=== PATIENT | male | born 1985 | race Caucasian/White ===

== ENCOUNTER 2019-03-11 09:10 | Emergency (ER) | payer OTHER ==
[~2019-03-11] VITALS: Ht 182.9 cm; Wt 99.8 kg
--- NOTE | 2019-03-11 09:30 | NUR ---
ANXIETY X 2 DAYS, CHEST PAIN AND FEELING DEPRESSED, GOING THROUGH DIVORCE PER PATIENT. PATIENT A/OX4, BREATHING EVEN AND UNLABORED, NO DISTRESS NOTED. KEPT COMFORTABLE, PLACED ON THE MONITOR. VSS. WILL MONITOR
[2019-03-11] MEDS ORDERED: LORAZEPAM 0.5 MG TABLET ONE (09:50)
[2019-03-11 09:54] LABS: BASOPHILS % (AUTO) 0.6 % (0.0-2.0); HEMATOCRIT 49 % (39-51); HEMOGLOBIN 16.9 g/dL (13.5-17.5); LYMPHOCYTES # (AUTO) 1.9 /CMM (0.8-4.8); LYMPHOCYTES % (AUTO) 25.2 % (20.0-44.0); MEAN CORPUSCULAR HGB CONC 34 g/dl (31.0-36.0); MEAN CORPUSCULAR VOLUME 91 fL (80-96); MONOCYTES # (AUTO) 0.8 /CMM (0.1-1.30); MONOCYTES % (AUTO) 10.6 % (2.0-12.0); NEUTROPHILS # (AUTO) 4.8 /CMM (1.8-8.9); NEUTROPHILS % (AUTO) 62.6 % (43.0-81.0); PLATELET COUNT (AUTO) 295 /CMM (150-450); RED BLOOD CELL COUNT(AUTO) 5.45 MIL/uL (4.5-6.0); WHITE BLOOD COUNT (AUTO) 7.7 K/uL (4.3-11.0)
[2019-03-11 10:00] LABS: CALCIUM, SERUM 8.4 mg/dL (8.5-10.1); CARBON DIOXIDE 25 mmol/L (21-32); CHLORIDE 105 mmol/L (98-107); CREATININE 1.1 mg/dL (0.6-1.3); GLUCOSE 104 mg/dL (74-106); POTASSIUM 3.6 mmol/L (3.5-5.1); SODIUM SERUM 142 mmol/L (136-145); UREA NITROGEN, BLOOD 17 mg/dL (7-18)
[2019-03-11] MEDS ORDERED: LORAZEPAM 1 MG TABLET PO ONE (10:00)
[2019-03-11 10:06] LABS: ALANINE AMINOTRANSFERASE 46 U/L (12-78); ALKALINE PHOSPHATASE 79 U/L (46-116); ASPARTATE AMINOTRANSFERASE 22 U/L (15-37); BILIRUBIN,DIRECT 0.1 mg/dL (0.0-0.2); BILIRUBIN,TOTAL 0.8 mg/dL (0.2-1.0); TOTAL PROTEIN, SERUM 7.6 g/dL (6.4-8.2)
--- NOTE | 2019-03-11 10:44 | NUR ---
Rx provided. Patient discharged to home in stable condition. Written and verbal after care instructions given. Patient verbalizes understanding of instruction.
[2019-03-11 10:45] VITALS: BP 145/97
== END 2019-03-11 10:49 | disposition home or self-care (01) ==
LOC: ER 09:15
DX: F41.9 Anxiety disorder, unspecified (principal); R07.89 Other chest pain; F17.200 Nicotine dependence, unspecified, uncomplicated; Z90.49 Acquired absence of other specified parts of digestive tract
CPT/HCPCS: 36415; 71045-TC; 80048-TC; 80076-TC; 84484-TC; 85025-TC; 85730-TC